=== PATIENT | female | born 1930 | race Caucasian/White ===

== ENCOUNTER 2018-08-16 21:30 | Emergency (ER) | payer OTHER ==
[~2018-08-16] VITALS: Ht 152.4 cm; Wt 45.4 kg
[~2018-08-16 21:30] MED LIST: DILANTIN30 MG; GEODON40 MG; LOVASTATIN20 MG; PRE PROTEIN 2030 ML
== END 2018-08-16 22:11 | disposition home or self-care (01) ==
LOC: ER 21:30
DX: K94.23 Gastrostomy malfunction (principal)